=== PATIENT | female | born 1995 | race Caucasian/White ===

== ENCOUNTER 2024-03-10 16:15 | Emergency (ER) | payer MEDICAID, SELFPAY ==
[2024-03-10 16:16] VITALS: BMI 21.9
[2024-03-10 16:28] VITALS: BP 113/79; PULSE 93; RESP 17; TEMP 37.2; O2SAT 98; BMI 20.5
--- NOTE | 2024-03-10 17:11 | XR_ITS ---
Examination: Pelvic ultrasound, transabdominal, complete Technique: Transabdominal ultrasound of the pelvis performed using grayscale imaging Date and time of exam: March 10, 2024 1818 hrs. Indications: Onset right-sided pelvic pain today Findings: Uterus 11.0 x 4.4 x 4.6 cm Intrauterine device satisfactory position No intrauterine gestation or uterine mass Right ovary 3.8 x 1.0 x 1.9 cm arterial flow 17 mm follicular cyst Left ovary 3.1 x 1.2 x 2.2 cm arterial flow Impression: Intrauterine device satisfactory position No uterine mass or intrauterine gestation
--- NOTE | 2024-03-10 17:11 | PD.EDRME ---
Rapid Medical Screening Exam RME Arrival date/time: 03/10/24 16:15 This is a 28-year-old female who presented to the emergency department with complaints of right sided pelvic pain history of ovarian cyst. I have greeted and performed a focused initial assessment of this patient. Initial appropriate labs ordered at this time. A comprehensive ED assessment and evaluation of the patient and analysis of all test and completion of medical decision making process will be conducted by additional ED provider. Chief Complaint: Abdominal Pain Time Seen by Provider: 03/10/24 16:54 Vital signs: Vital Signs Temperature 99.0 F 03/10/24 16:28 Pulse Rate 93 03/10/24 16:28 Respiratory Rate 17 03/10/24 16:28 Blood Pressure 113/79 03/10/24 16:28 Pulse Oximetry (%) 98 03/10/24 16:28 Oxygen Delivery Method Room Air 03/10/24 16:28
[2024-03-10 17:32] LABS: Collection Type, Urine Clean Catch
[2024-03-10 17:33] LABS: Basophils % (Auto) 0 % (0-2.5); Eosinophils # (Auto) 0.1 Thou/mm3 (0.0-0.5); Eosinophils % (Auto) 1 % (0-10); Hematocrit 37.6 % (36.0-46.0); Hemoglobin 12.2 g/dL (12.0-16.0); Immature Granulocytes % (Auto) 0 % (0-0); Immature Granulocytes Auto 0.02 Thou/mm3 (0.00-0.00); Lymphocytes # (Auto) 1.1 Thou/mm3 (1.0-4.8); Lymphocytes % (Auto) 10 % (10-50); Mean Corpuscular HGB Conc 32.4 g/dl (31.0-37.0); Mean Corpuscular Hemoglobin 29.5 pg (25.0-35.0); Mean Corpuscular Volume 91 fL (80-100); Monocytes # (Auto) 0.5 Thou/mm3 (0.0-0.8); Monocytes % (Auto) 5 % (0-12); Neutrophils % (Auto) 84 % (37-80); Nucleated Red Blood Cell % 0 /100 WBC (0); Platelet Count 287 Thou/mm3 (140-440); RDW Standard Deviation 42.6 fL (36.4-46.3); Red Blood Count 4.14 Miln/mm3 (4.00-5.20); White Blood Count 10.7 Thou/mm3 (3.6-11.0)
[2024-03-10 17:40] LABS: HCG Qualitative,Urine Negative
[2024-03-10 17:41] LABS: Bilirubin,Urine Negative (Negative); Blood,Urine Negative (Negative); Clarity,Urine Clear (Clear/Hazy); Color,Urine Lt-Yellow (Lt Yel-Yel); Glucose, Urine Negative (Negative); Ketones,Urine Negative (Negative); Leukocyte Esterase,Urine Negative (Negative); Nitrite,Urine Negative (Negative); PH,Urine 7.5 (5.0-7.0); Protein,Urine Negative (Neg - Trace); RBC,Urine 2 /hpf (0-3); Specific Gravity,Urine 1.016 (1.001-1.035); Squamous Epithelial Cell,Urine 1 /hpf (0-5); Urobilinogen,Urine Negative mg/dL (0.0-1.0); WBC,Urine 1 /hpf (0-5)
[2024-03-10 17:59] LABS: Alanine Aminotransferase 10 U/L (10-49); Albumin, Serum 4.8 gm/dL (3.5-5.0); Albumin/Globulin Ratio 1.5 (1.2-2.2); Alkaline Phosphatase 78 U/L (46-116); Anion Gap 4 (7-16); BUN/Creatinine Ratio 7 Ratio (12-20); Bilirubin,Total 0.3 mg/dL (0.3-1.2); Blood Urea Nitrogen 5 mg/dL (9-23); Calcium 9.5 mg/dL (8.3-10.6); Calcium (Corrected) 9.5 mg/dL (8.5-10.1); Carbon Dioxide 28.6 mMol/L (20.0-31.0); Chloride 103 mMol/L (98-107); Creatinine (Component) 0.7 mg/dL (0.6-1.3); Globulin 3.1 gm/dL (2.3-3.5); Glucose 96 mg/dL (74-106); Lipase 38 U/L (12-53); Osmolality,Calculated 269 (275-295); Potassium 3.9 mMol/L (3.4-5.1); Sodium 136 mMol/L (136-145); Total Protein 7.9 gm/dL (5.7-8.2); eGFR > 60 See Note
[2024-03-10 18:09] LABS: Aspartate Amino Transferase 13 U/L (0-34)
--- NOTE | 2024-03-10 19:39 | PD.EDABDPN ---
ED Abdominal Pain RME/HPI General Chief Complaint: Abdominal Pain Stated complaint: R OVARIAN CYST PAIN TODAY Time seen by provider: 03/10/24 16:54 Arrival date/time: 03/10/24 16:15 RME / HPI RME / HPI narrative: 03/10/24 16:15 This is a 28-year-old female who presented to the emergency department with complaints of right sided pelvic pain history of ovarian cyst. I have greeted and performed a focused initial assessment of this patient. Initial appropriate labs ordered at this time. A comprehensive ED assessment and evaluation of the patient and analysis of all test and completion of medical decision making process will be conducted by additional ED provider. -------- Dr. Ngo?s Main ED Evaluation: 28yo female presents to the ED for a chief complaint of right pelvic pain. Patient states she had a US back in 2020 and was told she had a right ovarian cyst after she gave to her daughter. Patient states she's had intermittent right pelvic pain for the last 4 years, reporting it significantly worsened today, so she came in for evaluation. She denies any fever, chills or any other associated symptoms. Patient has an IUD. No known allergies. Related Data Home Medications ?Medication ?Instructions ?Recorded ?Confirmed Vitamin * 1 tab PO QDAY SUPPLEMENT 02/08/17 07/20/20 #0 tabs Previous Rx's ?Medication ?Instructions ?Recorded docusate sodium 100 mg capsule 100 mg PO BID #60 caps 07/24/20 (Colace) ibuprofen 800 mg tablet 800 mg PO Q6H PRN pain #120 tabs 07/24/20 Allergies Allergy/AdvReac Type Severity Reaction Status Date / Time No Known Allergies Allergy Verified 03/10/24 16:17 Review of Systems Review of Systems Systems Reviewed: All systems reviewed, normal except as documented Narrative Review of Systems: Gen: No fever, no chills, no weight loss EYES: No discharge, no visual changes, no pain HEENT: No ear pain, no congestion, no sore throat PULM: No shortness of breath, no cough, no congestion CV: No chest pain, no dyspnea on exertion, no palpitations GI: No nausea, no vomiting, no diarrhea, + pain, no constipation : No frequency, no urgency, no dysuria Musc/skel: No joint pain, no back pain Skin: No rash. Warm and dry. Psyc: No hallucinations, no depression Heme/Lymph: No easy bleeding or bruising tendencies Neuro: No weakness, no headache ED Exam Narrative Physical exam: GENERAL APPEARANCE: alert and oriented x 4, well-developed, well-nourished, no acute distress VITALS: All vitals were reviewed and the pulse ox is 98% on room air, which is normal according to my interpretation. HEENT: Normocephalic, atraumatic; pupils equal, round, reactive to light; EOMI; mucous membranes pink, moist; oropharynx clear NECK: Supple LUNGS: CTABL; no wheezes, no rales, no rhonchi HEART: Regular rate, regular rhythm; normal S1, S2; no murmurs ABDOMEN: non distended; normal BS; soft, mild right pelvic tenderness, no McBurney tenderness, no guarding, no rebound; no masses, no organomegaly, no hernia BACK: no CVA tenderness EXTREMITIES: atraumatic; no edema NEUROLOGIC: awake; alert and oriented x4; cranial nerves II-XII grossly intact; no focal sensory or motor deficits PSYCHIATRIC: appropriate mood and affect SKIN: warm, dry, normal color; no rashes Course Quality Measures none Orders Category Date Time Status US pelvic complete Stat Exams 03/10/24 17:11 Completed CBC Stat Lab 03/10/24 17:23 Completed Comprehensive Metabolic Panel Stat Lab 03/10/24 17:23 Completed HCG Qualitative,Urine Stat Lab 03/10/24 17:21 Completed Lipase Stat Lab 03/10/24 17:23 Completed Urinalysis Stat Lab 03/10/24 17:21 Completed Ketorolac Inj [Toradol Inj] Med 03/10/24 19:40 Discontinued 30 mg IM X1 ONE Vital Signs Vital signs: Vital Signs Temperature 99.0 F 03/10/24 16:28 Pulse Rate 93 03/10/24 16:28 Respiratory Rate 17 03/10/24 16:28 Blood Pressure 113/79 03/10/24 16:28 Pulse Oximetry (%) 98 03/10/24 16:28 Oxygen Delivery Method Room Air 03/10/24 16:28 Abdominal Pain MDM MDM Narrative MDM Narrative:: Scribe Attestation: 03/10/24 - Nidia Myers am scribing for and in the presence of Dr. Ngo. Patient data External records reviewed:: [facility] previous records (Per chart review, patient has no relevant previous ED visits.) Clinical information provided by:: patient Social determinants that could affect healthcare access:: none Patient has the following chronic illnesses:: ovarian cyst How is presenting disease/condition affected by chronic disease/condition?: caused by Evaluation data The following diagnostics were reviewed and interpreted by me:: lab results and radiology exam(s) Lab and/or radiology exams considered but not ordered:: none Interpretation Summary: CBC is normal, CMP is normal, Lipase is normal, HCG is negative, UA is unremarkable, according to my interpretation, ---- [facility] Report Signed Patient: PEYTON DASILVA. Record#: [id number] Birthdate: 1995 Age/Sex: 28 / F Location: [facility] Attending Dr: Ordering Physician: Pepper Naranjo Date of Service: 03/10/24 Procedure(s): US pelvic complete Accession Number(s): [id number] cc: Huseyin Shaw MD; Chaim Vasquez MD; Pepper Naranjo~ Examination: Pelvic ultrasound, transabdominal, complete Technique: Transabdominal ultrasound of the pelvis performed using grayscale imaging Date and time of exam: March 10, 2024 1818 hrs. Indications: Onset right-sided pelvic pain today Findings: Uterus 11.0 x 4.4 x 4.6 cm Intrauterine device satisfactory position No intrauterine gestation or uterine mass Right ovary 3.8 x 1.0 x 1.9 cm arterial flow 17 mm follicular cyst Left ovary 3.1 x 1.2 x 2.2 cm arterial flow Impression: Intrauterine device satisfactory position No uterine mass or intrauterine gestation Dictated By: Chaim Vasquez MD Signed By: <Electronically signed by Chaim Vasquez MD in OV> 03/10/24 1919 Medications / Prescriptions Medications or Prescriptions considered but not ordered:: none Medication administrations:: Medication Administration History Discontinued Medications Ketorolac Tromethamine (Ketorolac Inj 60 Mg/2 Ml Vial) 30 mg IM X1 ONE Stop: 03/10/24 19:41 Last Admin: 03/10/24 19:55 Dose: 30 mg Documented By: AC see above Consultations Consultation(s) initiated? (list below): No Diagnosis Differential diagnosis abdominal pain: acute appendicitis and other (ovarian cyst, ovarian torsion, ectopic ) Most likely diagnosis given after review of the tests above:: see below Admission Indicated Admission indicated?: not indicated Admission Request Was there a request for admission?: No Disposition Plan Disposition Plan: Discharge Discharge Attestation Discharge Attestation: The patient and all family members were given an opportunity to ask questions and understood the discharge instructions. Discharge instructions specifically effects, indications for sooner follow up or return to the emergency department, and the expected course of current diagnosis. Patient condition: Stable Discharge Plan Plan Patient Disposition: HOME (Self Care) Disposition Comment: Stable for discharge Patient condition on transfer: Stable Prescriptions/Referrals Prescriptions/Med Rec: No Action Vitamin * 1 EACH tablet 1 tab PO QDAY Qty: 0 ibuprofen 800 mg tablet 800 mg PO Q6H MDD 4 PRN (Reason: pain) Qty: 120 0RF docusate sodium [Colace] 100 mg capsule 100 mg PO BID Qty: 60 0RF Referrals: Huseyin Shaw MD [Primary Care Provider] - In 1 week Problem List Clinical Impression: Ovarian cyst Patient/Caregiver Discharge Instructions Discharge Activity: activity as tolerated Education Materials: Understanding Ovarian Cysts, Treatment for Ovarian Cysts, ED Ovarian Cyst Additional Instructions: Please return to the emergency department if you do not improve or if you notice any worsening within the next couple of days. You should follow-up with your primary care doctor within the next several days. In the morning you should take 600 mg of ibuprofen (Motrin) as well as 975 mg of acetaminophen (Tylenol). You should take these every 6 hours as needed for pain for the next 2 days or so. Print Language: Belarusian Stand Alone Forms: [facility] Award Info., Patient Portal Info Letter
[2024-03-10] MEDS: KETOROLAC INJ 60 MG/2 ML VIAL 30 MG IM (19:55)
== END 2024-03-10 19:58 | disposition home or self-care (01) ==
PROVIDERS: Nurse Practitioner Primary Care; Emergency Provider Emergency Medicine; PCP Family Medicine
DX: N83.01 Follicular cyst of right ovary (principal)
CPT/HCPCS: 36415; 76856; 80053; 81001; 81025; 83690; 85025; 96372; 99283; J1885